=== PATIENT | male | born 1970 | race Caucasian/White ===

== ENCOUNTER 2020-10-23 15:08 | Outpatient (REF) | payer OTHER, SELFPAY ==
[2020-10-23 16:05] LABS: Alanine Aminotransferase 26 U/L (0-40); Albumin Level 4.6 g/dL (3.5-5.0); Alkaline Phosphatase 97 U/L (39-117); Anion Gap 15 (12-20); Aspartate Amino Transferase 30 U/L (5-37); Bilirubin Direct < 0.2 mg/dL (0.0-0.5); Bilirubin Total 0.3 mg/dL (0.0-1.0); Blood Urea Nitrogen 8 mg/dL (9-16); Carbon Dioxide 27 mmol/L (22-29); Chloride 102 mmol/L (96-108); Estimated Glomerular Filt Rate > 60; Glucose Random 99 mg/dL (60-115); Magnesium 1.9 mg/dL (1.6-2.6); Phosphorus 4.8 mg/dL (2.7-4.5); Potassium 4.3 mmol/L (3.3-5.1); Sodium 140 mmol/L (135-145); Total Protein 7.3 g/dL (6.5-8.0)
== END 2020-10-23 15:09 | disposition home or self-care (01) ==
LOC: HO.LAB 15:08
PROVIDERS: PCP Nurse Practitioner Family; Visit Provider Psychiatry & Neurology Neurology
DX: I95.9 Hypotension, unspecified (principal)
CPT/HCPCS: 36415; 80048; 80076; 83735; 84100

== ENCOUNTER 2022-03-30 11:18 | Outpatient (REF) | payer OTHER, SELFPAY ==
[2022-03-30 12:53] LABS: Anion Gap 17 (12-20); Blood Urea Nitrogen 7 mg/dL (9-16); Calcium 9.9 mg/dL (8.4-10.2); Carbon Dioxide 25 mmol/L (22-29); Chloride 102 mmol/L (96-108); Estimated Glomerular Filt Rate > 60; Glucose Random 85 mg/dL (60-115); Potassium 4.4 mmol/L (3.3-5.1); Sodium 140 mmol/L (135-145)
== END 2022-03-30 11:19 | disposition home or self-care (01) ==
LOC: HO.LAB 11:18
PROVIDERS: Visit Provider Psychiatry & Neurology Neurology
DX: G90.9 Disorder of the autonomic nervous system, unspecified (principal)
CPT/HCPCS: 36415; 80048

== ENCOUNTER 2023-01-15 09:31 | Outpatient (REF) | payer OTHER, SELFPAY | END 2023-01-15 09:32 | disposition home or self-care (01) | LOC: HO.LAB 09:31 | PROVIDERS: Visit Provider Psychiatry & Neurology Neurology | DX: G90.9 Disorder of the autonomic nervous system, unspecified (principal) | CPT/HCPCS: 36415; 80048 ==

== ENCOUNTER 2023-07-23 07:45 | Outpatient (REF) | payer OTHER, SELFPAY ==
--- NOTE | ~2023-07-23 | XR_ITS ---
EXAMINATION: XR HAND, RIGHT CLINICAL INFORMATION: Pain. COMPARISON: None available. TECHNIQUE: PA, lateral, and oblique views of the right hand. FINDINGS: There is bony demineralization. A mildly comminuted boxer's-type fracture is seen of the neck of the right fifth metacarpal bone. There is apex dorsal angulation. No dislocation is seen. There is mild adjacent soft tissue swelling. No soft tissue gas or foreign body is seen. XR/XR hand RT min 3V IMPRESSION: An angulated, mildly comminuted boxer's-type fracture is seen of the right fifth metacarpal neck.
== END 2023-07-23 07:46 | disposition home or self-care (01) ==
LOC: HO.XRAY 07:45
PROVIDERS: PCP Nurse Practitioner Family; Visit Provider Psychiatry & Neurology Neurology
DX: M79.641 Pain in right hand (principal)
CPT/HCPCS: 73130

== ENCOUNTER 2024-01-25 11:58 | Outpatient (REF) | payer OTHER, SELFPAY ==
[2024-01-25 13:12] LABS: Alanine Aminotransferase 40 U/L (0-40); Albumin Level 4.5 g/dL (3.5-5.0); Alkaline Phosphatase 71 U/L (39-117); Anion Gap 14 (12-20); Aspartate Amino Transferase 49 U/L (5-37); Bilirubin Direct 0.2 mg/dL (0.0-0.5); Bilirubin Total 0.6 mg/dL (0.0-1.0); Blood Urea Nitrogen 7 mg/dL (9-16); Calcium 9.3 mg/dL (8.4-10.2); Carbon Dioxide 24 mmol/L (22-29); Chloride 105 mmol/L (96-108); Estimated Glomerular Filt Rate > 60; Glucose Random 71 mg/dL (60-115); Potassium 3.9 mmol/L (3.3-5.1); Sodium 139 mmol/L (135-145); Total Protein 6.4 g/dL (6.5-8.0)
== END 2024-01-25 11:59 | disposition home or self-care (01) ==
LOC: HO.LAB 11:58
PROVIDERS: Visit Provider Psychiatry & Neurology Neurology
DX: G90.9 Disorder of the autonomic nervous system, unspecified (principal)
CPT/HCPCS: 36415; 80048; 80076

== ENCOUNTER 2024-11-24 07:22 | Outpatient (REF) | payer OTHER, SELFPAY ==
--- OUTSIDE RECORDS SUMMARY | 2024-11-24 07:25 | XMS_ITS | Clinical Summary ---
Author Organization [facility] Address [address] [place] [address] Care Team Providers Care Application Development Director Name Role Phone Marjorie Bradford PA-C Primary Care Provider [phone] Source Comments PLEASE NOTE, if this patient is a minor, it may be UNLAWFUL to discuss sensitive information that is contained in these records (such as FAMILY PLANNING, MENTAL HEALTH or SUBSTANCE ABUSE) with the minor patient's parent or other person without the patient's specific authorization.[facility] Allergies No known active allergies Medications fludrocortison e (FLORINEF) 0.1 mg tablet 07/27/19 20 Active lamoTRIgine (LAMICTAL) 200 mg tablet Take 200 mg by mouth once daily 01/04/20 21 Active blood pressure monitorIndicat ions:Dysautono sarahi ([facility]) once daily Lifetime need 1 Kit 10/14/19 22 Active compress.stock ing,knee,reg,m edIndications: Dysautonomia ([facility]) once daily Lifetime need 2 Each 10/14/19 22 Active ARIPiprazole (ABILIFY) 2 mg tablet Take 2 mg by mouth every morning 09/05/19 23 Active traZODone (DESYREL) 150 mg tablet Take 150 mg by mouth nightly at bedtime as needed 09/05/19 23 Active cyanocobalamin 1,000 mcg tabletIndicati ons:B12 deficiency Take 1 Tablet by mouth once daily 90 Tablet 1 09/27/19 23 Active MISCELLANEOUS MEDICAL SUPPLY MISCIndication s:Jackhammer esophagus,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 BMI 20.09. Please fax to [phone] 1 Each 03/26/20 24 Active midodrine (PROAMATINE) 5 mg tablet Take 5 mg by mouth once daily 07/26/19 25 Active tamsulosin (FLOMAX) 0.4 mg 24 hr capsuleIndicat ions:Difficult y urinating TAKE 1 CAPSULE BY MOUTH ONCE DAILY 30 Capsule 2 10/26/19 25 Active atorvastatin (LIPITOR) 20 mg tabletIndicati ons:Elevated LDL cholesterol level TAKE 1 TABLET BY MOUTH DAILY 30 Tablet 5 11/21/19 25 Active atorvastatin (LIPITOR) 20 mg tabletIndicati ons:Elevated LDL cholesterol level TAKE 1 TABLET BY MOUTH DAILY 30 Tablet 5 05/09/20 24 2024 Discontinued Active Problems Problem Noted Date Diagnosed Date Hematuria 08/15/2024 Difficulty urinating 08/15/2024 Tobacco use disorder 08/15/2024 Marijuana use 08/15/2024 Severe episode of recurrent major depressive disorder, without psychotic features ([facility]) 08/15/2024 Sciatic leg pain 04/23/2021 Dysautonomia ([facility]) 04/23/2021 Suicide attempt ([facility]) 03/19/2019 Overview (03/19/2019): [facility] 02/23/2019 OD on 50 tablets of Gabapentin. 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 Normal mucosa , gastritis Immunizations Immunization Administration Dates Next Due Flu, Adjuvant, 65y+ (Fluad) 03/28/2020 Flu, Preservative Free 03/28/2021,2019,04/03/2019,06/17 Hep B, Adult/Adol (ENERGIX/RECOMBIVAX) 7,07/27/2016,06/17/2016 INFLUENZA, SEASONAL, INJECTABLE 06/17/2016,06/13,09/22/2010 MENINGOCOCCAL MCV4P (MENACTRA) 06/17/2017 PNEUMOCOCCAL CONJUGATE PCV 2 0 (Prevnar) 12/09/2023 PNEUMOCOCCAL POLYSACCHARIDE PPV23 (Pneumovax 23) 06/17/2017,09/22/2010 TDAP 04/23/2021 Td (adult), 5 Lf tetanus tox oid, preservative free 12/19/2017 ZOSTER VACCINE, RECOMBINANT (SHINGRIX) 1,04/23/2021 Family History Medical History Relation Name Comments Cancer Father 68 Arthritis Mother 68 Relation Name Status Comments Father 68 Alive Mother 68 Alive Social History Tobacco Use Types Packs/Day Years Used Date Smoking Tobacco: Every Day Cigarettes 1 30 Smokeless Tobacco: Never Tobacco Cessation:Ready to Q uit: Not Asked; Counseling Given: Yes Comments:on NRT Alcohol Use Standard Drinks/Week Comments Yes 0 (1 standard drink = 0.6 oz pur e alcohol) occasionally Social Connections Answer Date Recorded Connectedness 2 08/15/2024 Financial Resource Strain Answer Date R ecorded Financial Resource Strain 1 2024 Stress Answer Date Recorded Stress 2 08/15/2024 Physical Activity Answer Date Recorded Physical Activity 0 03/01/2019 Food Insecurity Answer Date Recorded Food 1 08/15/2024 Transportation Needs Answer Date Record ed Transportation 1 08/15/2024 Housing Stability Answer Date Recorded Housing 1 08/15/2024 Safety and Environment Answer Date Jovanni rded Safety 1 12/09/2023 Utilities Answer Date Recorded Utilities 1 08/15/2024 Employment Answer Date Recorded Stress 0 12/09/2023 Sex and Gender Information Value Date Recorded Sex Assigned at Male 06/09/2017 10:30 AM PST Legal Sex Male 9:11 AM PDT Gender Identity Male 06/09/2017 10:30 AM PST Sexual Orientation Straight 06/09/2017 10 :30 AM PST Last Filed Vital Signs Vital Sign Reading Time Taken Comments Blood Pressure 116/80 08/15/2024 9:24 AM EST Pulse 75 08/15/2024 9:24 AM EST Temperature 36.9 ??C (98.5 ??F) 08/15/2024 9:24 AM ES T Respiratory Rate 16 08/15/2024 9:24 AM EST Oxygen Saturation 97% 08/15/2024 9:24 AM EST Inhaled Oxygen Concentration - - Weight 62.1 kg (137 lb) 08/15/2024 9:24 AM EST Height 177.8 cm (5' 10 ) 08/15/2024 9:24 AM EST Body Mass Index 19.66 08/15/2024 9:24 AM EST Plan of Treatment Upcoming Encounters Date Type Department Care Team (Late st Contact Info) Description 12/21/2024 9:00 AM EDT Office Visit [facility] [address] [place] [phone] Aleah Romo [address] [place] [address] Health Maintenance Due Date Last Done Comments Anxiety Screening 1970 Dental FMX/Pano [address] CT Colonography 12/18/2015 Fecal DNA 12/18/2015 Flexible Sigmoidoscopy 12/18/2015 Dental Perio Charting 07/20/2024 07/18/2023 , 01/13/2023, 12/28/2021 Depression Monitoring 11/12/2024 08/15/2024 , 12/09/2023, 07/15/2021, Additional history exists Lung Cancer Screening 11/24/2024 11/25/2023 , 11/25/2023, 11/25/2023, Additional history exists Medicare Annual Wellness Visit 12/08/2024 0 12/09/2023, 09/24/2022, 04/23/2021, Additional history exists Lipid Screening 12/16/2024 2023, 09/08, 07/15/2021, Additional history exists Dental Examination 04/15/2025 04/13/2024, 0 07/18/2023, 01/13/2023, Additional history exists Dental Prophy 04/15/2025 04/13/2024, 02/2024, 01/13/2023, Additional history exists Diabetes Screening 08/11/2025 08/11/2024, 0 2023, 2023, Additional history exists Hypertension Screening (#1) 08/15/2025 Tobacco Cessation Counseling (#1) 08/15/2025 09/24/2022, 04/23/2021, 06/09/2017, Additional history exists Colorectal Cancer Screening 08/15/2026 FIT/gFOBT 08/15/2026 06/28/2021 Imm-DTaP/Tdap/Td (2 - Td or Tdap) 04/23/2031 021, 12/19/2017 Colonoscopy 08/15/2033 08/15/2023 Imm-Hepatitis B Completed 04/12/2017, 07/11, 06/17/2016 HIV Screening Completed 04/23/2021, 11/09/2017 Hepatitis C Screening Completed 04/23/2021, 015 Imm-Zoster, Recombinant Completed 06/29/2021, 04/23 Imm-Pneumococcal Completed 12/09/2023, 02/2017, 09/22/2010 [id number] Completed 04/14/2024, 05/11, 04/25/2022, Additional history exists Imm-Influenza Completed 04/14/2024, 05/11, 04/25/2022, Additional history exists Alcohol and Drug Screen Completed 08/15/19, 12/09/2023, 09/24/2022, Additional history exists Procedures Procedure Name Priority Date/Time Associated Diagnosis Comments IMAGING SCANNED DOCUMENT 10/23/2024 3:00 AM EDT REFERRAL TO UROLOGY Routine 10/11/2024 3 :00 AM EDT Hematuria, unspecified type Difficulty urinating OTHER ORDERS SCANNED DOCUMENT 09/14/2024 3:00 AM EST REFERRAL SCANNED DOCUMENT 09/12/2024 3:00 AM EST COMPREHENSIVE METABOLIC PANEL Routine 08/11/2024 9:10 AM EST Difficulty urinating PROPHYLAXIS - ADULT Routine 04/13/2024 1 :40 PM EDT Chronic gingivitis, plaque induced Encounter for dental examination and cleaning without abnormal findings PERIODIC ORAL EVALUATION ESTABLISHED PATIENT Routine 04/13/2024 1:40 PM EDT Chronic gingivitis, plaque induced Encounter for dental examination and cleaning without abnormal findings LIPIDS W RFLX TO DIRECT LDL Routine 2023 10:18 AM EDT Annual physical exam LUNG CANCER SCREENING (LOW DOSE CT OF CHEST) SCANNED DOCUMENT 11/25/2023 3:00 AM EDT COLONOSCOPY PATHOLOGY SCANNED DOCUMENT 08/15/2023 3:00 AM EST COMP PERIODONTAL EVALUATION - NEW/EST PATIENT Routine 07/18/2023 1:40 PM EST Encounter for dental examination FECAL GLOBIN BY IMMUNOCHEMISTRY (FIT) Routine 06/28/2021 7:00 PM EST Colon cancer screening HIV 1/2 AG & AB W/RFLX (4TH GEN) Routine 04/23/2021 9:18 AM EDT Screening for viral disease HEPATITIS C AB W/RFLX HCV RNA, QT, RT PCR Routine 04/23/2021 9:18 AM EDT Screening for viral disease from Last 3 Months or Most Recently Relevant to Health Maintenance Results * IMAGING SCANNED DOCUMENT (10/23/2024 3:00 AM EDT) 10/23/2024 3:00 AM EDT Nimo PEREZP-C SCAN IMAGING Final Re sult * REFERRAL TO UROLOGY (10/11/2024 3:00 AM EDT) 10/11/2024 3:00 AM EDT Marjorie Bradford PA-C REFERRAL Final Result * OTHER ORDERS SCANNED DOCUMENT (09/14/2024 3:00 AM EST) 09/14/2024 3:00 AM EST Marjorie VILLALTA-C SCAN OTHER ORDERS Final Resu lt * REFERRAL SCANNED DOCUMENT (09/12/2024 3:00 AM EST) 09/12/2024 3:00 AM EST Marjorie Bradford PA-C SCAN REFERRAL Final Result * (ABNORMAL) COMPREHENSIVE METABOLIC PANEL (08/11/2024 9:10 AM EST) GLUCOSE 85 65 - 99 mg/dL [facility] Comment: ?Fasting reference interval UREA NITROGEN (BUN) 9 7 - 25 mg/dL [facility] CREATININE (blood) 0.86 0.70 - 1.30 mg/dL [facility] EGFR 104 > OR = 60 mL/min/1. 73m2 [facility] BUN/CREATININE RATIO SEE NOTE: [facility] Comment: ?? Not Reported: BUN and Creatinine are within ?? reference range. ? SODIUM 138 135 - 146 mmol/L [facility] POTASSIUM 4.4 3.5 - 5.3 mmol/L [facility] CHLORIDE 105 98 - 110 mmol/L [facility] CARBON DIOXIDE 26 20 - 32 mmol/L [facility] CALCIUM 9.0 8.6 - 10.3 mg/dL [facility] PROTEIN, TOTAL 6.0(L) 6.1 - 8.1 g/dL [facility] ALBUMIN 4.5 3.6 - 5.1 g/dL [facility] GLOBULIN 1.5(L) 1.9 - 3.7 g/dL (calc) [facility] ALBUMIN/GLOBULI N RATIO 3.0(H) 1.0 - 2.5 (calc) [facility] BILIRUBIN, TOTAL 0.6 0.2 - 1.2 mg/dL [facility] ALKALINE PHOSPHATASE 59 35 - 144 U/L [facility] AST 40(H) 10 - 35 U/L [facility] ALT 38 9 - 46 U/L [facility] Blood Blood / Unknown 08/11/2024 9 :10 AM EST 08/11/2024 9:11 AM EST Narrative [facility] - 08/13/2024 5:48 PM EST FASTING:YES Forrest Pitts PA-C LAB - BLOOD DRAW Edited Resul t - Final [facility] [address] [address], [facility] [address] [address] * LIPIDS W RFLX TO DIRECT LDL (2023 10:18 AM EDT) CHOLESTEROL, TOTAL 154 <200 mg/dL [facility] HDL CHOLESTEROL 58 > OR = 40 mg/dL [facility] TRIGLYCERIDES 52 <150 mg/dL [facility] LDL-CHOLESTEROL 83 99 mg/dL (calc) [facility] Comment: Reference range: <100 Desirable range <100 mg/dL for primary prevention; ?? <70 mg/dL for patients with CHD or diabetic patients with > or = 2 CHD risk factors. LDL-C is now calculated using the James calculation, which is a validated novel method providing better accuracy than the Friedewald equation in the estimation of LDL-C. Miguelangel CHA et al. EMMA. 2013;310(19): 6826-8134 (http://education.[employer]/faq/WRK550) CHOL/HDLC RATIO 2.7 <5.0 (calc) [facility] NON-HDL CHOLESTEROL 96 <130 mg/dL (calc) [facility] Comment: For patients with diabetes plus 1 major ASCVD risk factor, treating to a non-HDL-C goal of <100 mg/dL (LDL-C of <70 mg/dL) is considered a therapeutic option. Blood Blood / Unknown 2023 1 0:18 AM EDT 2023 10:19 AM EDT Narrative [facility] - 12/18/2023 11:17 AM EDT FASTING:YES us Marjorie Bradford PA-C LAB - BLOOD DRAW Final Resul t [facility] [address] [address], [facility] [address] [address] * LUNG CANCER SCREENING (LOW DOSE CT OF CHEST) SCANNED DOCUMENT (11/25/2023 3:00 AM EDT) 11/25/2023 3:00 AM EDT Kerry Dodsonadia STEEL [employer]ER-C SCAN IMAGING Edited Resul t - Final * COLONOSCOPY PATHOLOGY SCANNED DOCUMENT (08/15/2023 3:00 AM EST) 08/15/2023 3:00 AM EST Marjorie Bradford PA-C SCAN LAB Final Result * FECAL GLOBIN BY IMMUNOCHEMISTRY (FIT) (06/28/2021 7:00 PM EST) FECAL GLOBIN BY IMMUNOCHEMISTRY See Note [facility] Comment: ??FECAL GLOBIN BY IMMUNOCHEMISTRY ?Micro Number: ?[id number] ??Test Status: ? Final ??Specimen Source: ?? Insure (tm) fobt test card ??Specimen Quality: ??Adequate ??Fecal Globin: ?Not Detected Stool Stool specimen / Unknown 06/28/2021 7:00 PM EST 06/30/2021 1:59 PM EST Kerry Wilkins [facility] LAB - NO BLOOD DRAW Final Re sult [facility] [address] [place] [address], [facility] [address] [place] [address],[place] [address] * HEPATITIS C AB W/RFLX HCV RNA, QT, RT PCR (04/23/2021 9:18 AM EDT) HEPATITIS C ANTIBODY NON-REACT BETTIE NON-REACT BETTIE [facility] SIGNAL TO CUT-OFF 0.01 <1.00 [facility] Comment: HCV antibody was non-reactive. There is no laboratory evidence of HCV infection. In most cases, no further action is required. However, if recent HCV exposure is suspected, a test for HCV RNA (test code 72428) is suggested. For additional information please refer to http://education.[employer]/faq/LLI79q5 (This link is being provided for informational/ educational purposes only.) Blood Blood / Unknown 04/23/2021 9 :18 AM EDT 04/23/2021 9:19 AM EDT Narrative [facility] - 04/24/2021 2:35 PM EDT FASTING:NO Kerry Wilkins [employer]-C LAB - BLOOD DRAW Edited Resu lt - Final [facility] [address] [address], [facility] [address] [address] * HIV 1/2 AG & AB W/RFLX (4TH GEN) (04/23/2021 9:18 AM EDT) HIV AG/AB, 4TH GEN NON-REAC TIVE NON-REAC TIVE [facility] Comment: HIV-1 antigen and HIV-1/HIV-2 antibodies were not detected. There is no laboratory evidence of HIV infection. PLEASE NOTE: This information has been disclosed to you from records whose confidentiality may be protected by state law. ??If your state requires such protection, then the state law prohibits you from making any further disclosure of the information without the specific written consent of the person to whom it pertains, or as otherwise permitted by law. A general authorization for the release of medical or other information is NOT sufficient for this purpose. ?? For additional information please refer to http://[employer].Film[employer]ob/faq/XWT997 (This link is being provided for informational/ educational purposes only.) The performance of this assay has not been clinically validated in patients less than 2 years old. Blood Blood / Unknown 04/23/2021 9 :18 AM EDT 04/23/2021 9:19 AM EDT Narrative [email or web address] - 04/24/2021 2:35 PM EDT FASTING:NO Kerry Wilkins [employer]-C LAB - BLOOD DRAW Final Resul t [facility] [address] [facility] [address] [place] [address], [facility] [address] [address] from Last 3 Months or Most Recently Relevant to Health Maintenance Insurance [place] MEDICAID [facility] Member Subscriber Plan / Payer (Ef fective 2017-Present) Name:Victorino Morillo Relation to Subscriber:Self Name:Victorino Morillo Payer ID:[id number] Group ID:Not on file Type:Indemnity Address: [address] [place] [address] Care Teams Application Development Director Relationship Specialty Start Date End Date Marjorie Bradford PA-C [address] [place] [address] PCP - General Internal Medicine 07/18/23
--- OUTSIDE RECORDS SUMMARY | 2024-11-24 07:25 | XMS_ITS | Encounter Summary ---
Author Organization [email or web address] Address [address] [place] [address] Care Team Providers Care Molding Supervisor Name Role Phone Physician, Pcp Unknown Primary Care Provider Tiffani vailable Encounter Details Date Type Department Care Team (Late Contact Info) Description 10/18/2024 Lab Requisition [facility] - Main Lab [address] [facility] [place] [address] Esequiel Saenz MD [address] [facility] [address] [place] [phone] Benign essential microscopic hematuria Social History Tobacco Use Types Packs/Day Years Used Date Smoking Tobacco: Every Day Sex and Gender Information Value Date Recorded Sex Assigned at Not on file Legal Sex Male 4:25 AM EST Gender Identity Not on file Sexual Orientation Not on file documented as of this encounter Plan of Treatment Upcoming Encounters Date Type Department Care Team (Late Contact Info) Description 11/28/2024 8:[address] [facility] CT Scan [address] [place] [phone] documented as of this encounter Procedures Procedure Name Priority Date/Time Associated Diagnosis Comments AP OUTSIDE CONSULT Routine 10/11/2024 12 :00 AM EDT Benign essential microscopic hematuria documented in this encounter Results * Anatomic pathology outside consult (10/11/2024 12:00 AM EDT) Final Diagnosis A. Urine, Voided, ([id number]): Negative for high grade urothelial carcinoma. Results of [facility] fluorescence in situ hybridization (FISH) testing: CEP3: Normal CEP7: Normal CEP17: Normal LSI 9p21: Normal Interpretation: Normal profile Controls stained appropriately. Note: The results are intended as a screening device and should be interpreted in association with other clinical and pathological findings. 10/19/2024 5:07 PM EDT [facility] Clinical Information Benign essential microscopic hematuria R31.1 Urine Cytology/FISH (now) 10/19/2024 5:07 PM EDT [facility] Gross Description A. Urine, Voided, ([id number]): Received one ThinPrep slide for cytology and one ThinPrep slide for [facility] FISH 10/19/2024 5:07 PM EDT [facility] Disclaimer Unless otherwise specified, all tissue is 10% NB formalin fixed and paraffin embedded. Technical pathology services provided by [facility] at [address] [place] [address] [address] [address] (CLIA #[id number]/Martha Sweet MD, Supplies Packer) 10/19/2024 5:07 PM EDT [facility] Tissue Urine specimen from urethra / Unknown 10/11/2024 10/18/2024 11:26 AM EDT us Esequiel Saenz MD LAB PATHOLOGY ORDERABLES Fin al Result [facility] [address] [place] [address], documented in this encounter Visit Diagnoses Diagnosis Benign essential microscopic hematuria documented in this encounter Care Teams Molding Supervisor Relationship Specialty Start Date End Date Physician, Pcp Unknown PCP - General 10/18/24 documented as of this encounter
--- OUTSIDE RECORDS SUMMARY | 2024-11-24 07:25 | XMS_ITS | Clinical Summary ---
Author Organization [address] [facility] Address [address] [place] [address] Phone Care Team Providers Care Packaging Mechanic Name Role Phone Physician, Pcp Unknown Primary Care Provider Tiffani vailable Encounters Date Type Department Care Team Description 11/14/2024 Telephone Lung Screening Program - [place] [address] [facility] [address] [place] [address] Loan Britt [place] Appointment (1st Notification) 10/18/2024 Lab Requisition [facility] - Main Lab [address] [facility] [place] [address] Esequiel Saenz MD Benign essential microscopic hematuria from Last 3 Months Medical History Medical History Date Comments Tobacco abuse DX:Tobacco abuse Dysautonomia (CMS/HCC V24, CMS/HCC V28) DX:Dysautonomia (HCC) Suicide attempt (CMS/HCC V24, [facility] V28) DX:Suicide attempt (HCC) Sciatic leg pain DX:Sciatic leg pain Jackhammer esophagus DX:Jackhamm er esophagus Alcohol abuse DX:Alcohol abuse Family History Medical History Relation Name Comments Lung cancer Paternal Grandfather Relation Name Status Comments Paternal Grandfather Social History Tobacco Use Types Packs/Day Years Used Date Smoking Tobacco: Every Day Sex and Gender Information Value Date Recorded Sex Assigned at Not on file Legal Sex Male 4:25 AM EST Gender Identity Not on file Sexual Orientation Not on file Obstetrics History Plan of Treatment Upcoming Encounters Date Type Department Care Team (Late st Contact Info) Description 11/28/2024 8:00 AM EDT Appointment [facility] CT Scan [address] [place] [address] Health Maintenance Due Date Last Done Comments DTaP,Tdap,and Td Vaccines (1 - Tdap) 1989 Hepatitis B Vaccines (1 of 3 - 19+ 3-dose series) 1989 Pneumococcal Vaccine: 50+ Ye ars (1 of 2 - PCV) 1989 Pneumococcal Vaccine: Pediat rics (0 to 5 Years) and At-Risk Patients (6 to 64 Years) (1 of 2 - PCV) 1989 Zoster Vaccines (1 of 2) 2020 Cholesterol Screening (Lipid Panel) 06/13/2022 Colorectal Cancer Screening: Colonoscopy 06/13/2022 Depression Screening 06/13/2022 HIV Screening 06/13/2022 Hepatitis C Screening 06/13/2022 Social Influencers of Health Screening 06/13/2022 COVID-19 Vaccine ( - 2023-2 5 season) 2024 Influenza Vaccine (Season Ended) 2025 HIB Vaccines Aged Out No longer eligi ble based on patient's age to complete this topic HPV Vaccines Aged Out No longer eligi ble based on patient's age to complete this topic Hepatitis A Vaccines Aged Out No long er eligible based on patient's age to complete this topic IPV Vaccines Aged Out No longer eligi ble based on patient's age to complete this topic MMR Vaccines Aged Out No longer eligi ble based on patient's age to complete this topic Meningococcal ACWY Vaccine Aged Out N o longer eligible based on patient's age to complete this topic Meningococcal B Vaccine Aged Out No l onger eligible based on patient's age to complete this topic RSV Immunization Patients Un raul 20 months Aged Out No longer eligible b ased on patient's age to complete this topic Varicella Vaccines Aged Out No longer eligible based on patient's age to complete this topic Procedures Procedure Name Priority Date/Time Associated Diagnosis Comments AP OUTSIDE CONSULT Routine 10/11/2024 12 :00 AM EDT Benign essential microscopic hematuria from Last 3 Months Results * Anatomic pathology outside consult (10/11/2024 12:00 AM EDT) Final Diagnosis A. Urine, Voided, ([id number]): Negative for high grade urothelial carcinoma. Results of [facility] fluorescence in situ hybridization (FISH) testing: CEP3: Normal CEP7: Normal CEP17: Normal LSI 9p21: Normal Interpretation: Normal profile Controls stained appropriately. Note: The results are intended as a screening device and should be interpreted in association with other clinical and pathological findings. 10/19/2024 5:07 PM EDT [facility] Clinical Information Benign essential microscopic hematuria R31.1 Urine Cytology/FISH (now) 10/19/2024 5:07 PM EDT [facility] Gross Description A. Urine, Voided, ([id number]): Received one ThinPrep slide for cytology and one ThinPrep slide for [facility] FISH 10/19/2024 5:07 PM EDT [facility] Disclaimer Unless otherwise specified, all tissue is 10% NB formalin fixed and paraffin embedded. Technical pathology services provided by [facility] at [address], [place] [address] (CLIA #[id number]/Martha Sweet MD, Tag And Label Cutter) 10/19/2024 5:07 PM EDT [facility] Tissue Urine specimen from urethra / Unknown 10/11/2024 10/18/2024 11:26 AM EDT us Esequiel Saenz MD LAB PATHOLOGY ORDERABLES Fin al Result [facility] [address] [place] [address], from Last 3 Months Insurance [facility] Member Subscriber Plan / Payer (Ef fective 2024-Present) Name:Victorino Morillo Relation to Subscriber:Self Name:Victorino Morillo Payer ID:[id number] Group ID:Not on file Type:Not on file Address: [place] [address] [address] MEDICAID - [place] Care Teams Packaging Mechanic Relationship Specialty Start Date End Date Physician, Pcp Unknown PCP - General 10/18/24
[2024-11-24 08:49] LABS: Alanine Aminotransferase 52 U/L (0-40); Albumin Level 4.2 g/dL (3.5-5.0); Alkaline Phosphatase 73 U/L (39-117); Anion Gap 11 (12-20); Aspartate Amino Transferase 48 U/L (5-37); Bilirubin Direct 0.2 mg/dL (0.0-0.5); Bilirubin Total 0.5 mg/dL (0.0-1.0); Blood Urea Nitrogen 9 mg/dL (9-16); Calcium 8.9 mg/dL (8.4-10.2); Carbon Dioxide 26 mmol/L (22-29); Chloride 108 mmol/L (96-108); Estimated Glomerular Filt Rate > 60; Glucose Fasting 107 mg/dL (60-99); Potassium 4.1 mmol/L (3.3-5.1); Sodium 141 mmol/L (135-145); Total Protein 6.2 g/dL (6.5-8.0)
== END 2024-11-24 07:23 | disposition home or self-care (01) ==
LOC: HO.LAB 07:22
PROVIDERS: PCP Physician Assistant; Visit Provider Psychiatry & Neurology Neurology
DX: G90.9 Disorder of the autonomic nervous system, unspecified (principal)
CPT/HCPCS: 36415; 80048; 80076

== ENCOUNTER 2025-03-12 08:46 | Outpatient (REF) | payer OTHER, SELFPAY ==
--- OUTSIDE RECORDS SUMMARY | 2025-03-12 09:32 | XMS_ITS | Clinical Summary ---
Author Organization [facility] Address [address] [place] [address] Care Team Providers Care [employer] Agriculture Teacher Name Role Phone Marjorie Bradford PA-C Primary Care Provider [phone] Source Comments PLEASE NOTE, if this patient is a minor, it may be UNLAWFUL to discuss sensitive information that is contained in these records (such as FAMILY PLANNING, MENTAL HEALTH or SUBSTANCE ABUSE) with the minor patient's parent or other person without the patient's specific authorization.[facility] Allergies No known active allergies Medications fludrocortison e (FLORINEF) 0.1 mg tablet 020 Active lamoTRIgine (LAMICTAL) 200 mg tablet Take 200 mg by mouth once daily 021 Active blood pressure monitorIndicat ions:Dysautono sarahi ([facility]) once daily Lifetime need 1 Kit 022 Active compress.stock ing,knee,reg,m edIndications: Dysautonomia ([facility]) once daily Lifetime need 2 Each 022 Active ARIPiprazole (ABILIFY) 2 mg tablet Take 2 mg by mouth every morning 023 Active traZODone (DESYREL) 150 mg tablet Take 150 mg by mouth nightly at bedtime as needed 023 Active cyanocobalamin 1,000 mcg tabletIndicati ons:B12 deficiency Take 1 Tablet by mouth once daily 90 Tablet 1 023 Active midodrine (PROAMATINE) 5 mg tablet Take 5 mg by mouth once daily 025 Active atorvastatin (LIPITOR) 20 mg tabletIndicati ons:Elevated LDL cholesterol level TAKE 1 TABLET BY MOUTH DAILY 30 Tablet 5 025 Active MISCELLANEOUS MEDICAL SUPPLY MISCIndication s:Jackhammer esophagus,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 BMI 20.09. Please fax to [phone] miscellaneous route 2 (two) times daily Boost Nutritional supplement to take twice a day. BMI 20.09. Please fax to [phone]. 100 Each 2 025 Active tamsulosin (FLOMAX) 0.4 mg 24 hr capsuleIndicat ions:Difficult y urinating TAKE 1 CAPSULE BY MOUTH DAILY 30 Capsule 2 025 Active MISCELLANEOUS MEDICAL SUPPLY MISCIndication s:Jackhammer esophagus,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 BMI 20.09. Please fax to [phone] 1 Each 024 2024 Discontinued(R eodalier (E-Cancel Not Sent)) tamsulosin (FLOMAX) 0.4 mg 24 hr capsuleIndicat ions:Difficult y urinating TAKE 1 CAPSULE BY MOUTH ONCE DAILY 30 Capsule 2 025 2024 Discontinued Active Problems Problem Noted Date Diagnosed Date Hematuria 08/15/2024 Difficulty urinating 08/15/2024 Tobacco use disorder 08/15/2024 Marijuana use 08/15/2024 Severe episode of recurrent major depressive disorder, without psychotic features ([facility]) 08/15/2024 Sciatic leg pain 04/23/2021 Dysautonomia ([facility]) 04/23/2021 Suicide attempt ([facility]) 03/19/2019 Overview (03/19/2019): [facility] 02/23/2019 OD on 50 tablets of Gabapentin. 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 Normal mucosa , gastritis Encounters Date Type Department Care Team Description 01/23/2025 9:00 AM EDT Office Visit [address] [address] Marjorie Bradford PA-C 12/21/2024 9:00 AM EDT Office Visit [address] [address] Aleah Romo from Last 3 Months Immunizations Immunization Administration Dates Next Due Flu, Adjuvant, 65y+ (Fluad) 03/28/2020 Flu, Preservative Free 03/28/2021,2019,04/03/2019,06/17 Hep B, Adult/Adol (FAMMBGP-M-BFRWL/RECOMBIVAX-ADULT) 04/12/2017,07/27/2016,06/17/2016 INFLUENZA, SEASONAL, INJECTABLE 06/17/2016,06/13,09/22/2010 MENINGOCOCCAL MCV4P (MENACTRA) 06/17/2017 PNEUMOCOCCAL CONJUGATE PCV 2 0 (Prevnar 20) 12/09/2023 PNEUMOCOCCAL POLYSACCHARIDE PPV23 (Pneumovax 23) 06/17/2017,09/22/2010 TDAP 04/23/2021 Td (adult), 5 Lf tetanus tox oid (Tenivac), preservative free 12/19/2017 ZOSTER VACCINE, RECOMBINANT (SHINGRIX) [...] alcohol) occasionally Social Connections Answer Date Recorded How often do you feel lonely or isolated from th ose around you? 2 08/15/2024 Financial Resource Strain Answer Date R ecorded Hard to pay for: Food 1 08/15/2024 Stress Answer Date Recorded Do you feel these kinds of stress these days? 2 08/15/2024 Physical Activity Answer Date Recorded Physical Activity 0 03/01/2019 Food Insecurity Answer Date Recorded Hard to pay for: Food 1 08/15/2024 Transportation Needs Answer Date Record ed Hard to pay for: Transportation 1 08/15/2024 Housing Stability Answer Date Recorded Hard to pay for: Rent/Mortgage payment 1 08/15/2024 Safety and Environment Answer Date Jovanni rded Safety 1 12/09/2023 Utilities Answer Date Recorded Hard to pay for: Utilities 1 08/15 Employment Answer Date Recorded Stress 0 12/09/2023 Sex and Gender Information Value Date Recorded Sex Assigned at Male 06/09/2017 10:30 AM PST Legal Sex Male 9:11 AM PDT Gender Identity Male 06/09/2017 10:30 AM PST Sexual Orientation Straight 06/09/2017 10 :30 AM PST Last Filed Vital Signs Vital Sign Reading Time Taken Comments Blood Pressure 114/80 01/23/2025 8:49 AM EDT Pulse 78 01/23/2025 8:49 AM EDT Temperature 36.7 C (98 F) 01/23/2025 8:49 AM EDT Respiratory Rate 16 01/23/2025 8:49 AM EDT Oxygen Saturation 96% 01/23/2025 8:49 AM EDT Inhaled Oxygen Concentration - - Weight 59.5 kg (131 lb 3.2 oz) 01/23/2025 8:49 A M EDT Height 177.8 cm (5' 10 ) 01/23/2025 8:49 AM EDT Body Mass Index 18.83 01/23/2025 8:49 AM EDT Plan of Treatment Upcoming Encounters Date Type Department Care Team (Late st Contact Info) Description 05/03/2025 8:40 AM EDT Office Visit [facility] [address] [place] [address] Marjorie Bradford PA-C [address] [place] [address] 06/24/2025 9:00 AM EST Office Visit [facility] [address] [place] [address] Aleah Romo [address] [place] [address] Health Maintenance Due Date Last Done Comments Anxiety Screening 1970 Dental FMX/Pano 1970 Medicare Annual Wellness Visit 1988 CT Colonography 12/18/2015 Fecal DNA 12/18/2015 Flexible Sigmoidoscopy 12/18/2015 Lipid Screening 12/16/2024 2023, 09/08, 07/15/2021, Additional history exists Imm-Influenza (#1) 2025 04/14/2024, 1 07/28/2022, 04/25/2022, Additional history exists Depression Monitoring 04/25/2025 01/23/2025 , 08/15/2024, 12/09/2023, Additional history exists Diabetes Screening 08/11/2025 08/11/2024, 0 2023, 2023, Additional history exists Lung Cancer Screening 11/28/2025 11/28/2024 , 11/28/2024, 11/25/2023, Additional history exists Dental Examination 12/23/2025 12/21/2024, 1 , 07/18/2023, Additional history exists Dental Perio Charting 12/23/2025 12/21/2024 , 07/18/2023, 01/13/2023, Additional history exists Dental Prophy 12/23/2025 12/21/2024, 10/2023, 07/18/2023, Additional history exists Hypertension Screening (#1) 01/23/2026 Tobacco Cessation Counseling (#1) 01/23/2026 09/24/2022, 04/23/2021, 06/09/2017, Additional history exists Colorectal Cancer Screening 08/15/2026 FIT/gFOBT 08/15/2026 06/28/2021 Imm-DTaP/Tdap/Td (2 - Td or Tdap) 04/23/2031 021, 12/19/2017 Colonoscopy 08/15/2033 08/15/2023 Imm-Hepatitis B Completed 04/12/2017, 07/11, 06/17/2016 HIV Screening Completed 04/23/2021, 11/09/2017 Hepatitis C Screening Completed 04/23/2021, 015 Imm-Zoster, Recombinant Completed 06/29/2021, 04/23 Imm-Pneumococcal 50+ Completed 12/09/2023, 06/17/2017, 09/22/2010 [id number] Completed 04/14/2024, 05/11, 04/25/2022, Additional history exists Alcohol and Drug Screen Completed 08/15/19, 12/09/2023, 09/24/2022, Additional history exists Procedures Procedure Name Priority Date/Time Associated Diagnosis Comments REFERRAL SCANNED DOCUMENT 01/28/2025 3:00 AM EDT INTRAORAL - PERIAPICAL EACH ADD RADIOGRAPH IMAGE Routine 12/21/2024 9:00 AM EDT Encounter for dental examination INTRAORAL - PERIAPICAL FIRST RADIOGRAPHIC IMAGE Routine 12/21/2024 9:00 AM EDT Encounter for dental examination PERIODIC ORAL EVALUATION ESTABLISHED PATIENT Routine 12/21/2024 9:00 AM EDT Encounter for dental examination DENTAL CASE MANAGEMENT - MOTIVATIONAL INTV Routine 12/21/2024 9:00 AM EDT Encounter for dental examination PROPHYLAXIS - ADULT Routine 12/21/2024 9 :00 AM EDT Encounter for dental examination COMP PERIODONTAL EVALUATION - NEW/EST PATIENT Routine 12/21/2024 9:00 AM EDT Encounter for dental examination CARIES RISK ASSESSMENT & DOC FINDING HIGH RISK Routine 12/21/2024 9:00 AM EDT Encounter for dental examination NUTRITIONAL COUNSELING CONTROL OF DENTAL DISEASE Routine 12/21/2024 9:00 AM EDT Encounter for dental examination ORAL HYGIENE INSTRUCTIONS Routine 12/21/2024 9:00 AM EDT Encounter for dental examination ORAL CANCER SCREENING Routine 12/21/2024 9:00 AM EDT Encounter for dental examination CASE PRESENTATION SUBS DTL & EXTENSIVE TX PLN Routine 12/21/2024 9:00 AM EDT Encounter for dental examination LUNG CANCER SCREENING (LOW DOSE CT OF CHEST) SCANNED DOCUMENT 11/28/2024 3:00 AM EDT COMPREHENSIVE METABOLIC PANEL Routine 08/11/2024 9:10 AM EST Difficulty urinating LIPIDS W RFLX TO DIRECT LDL Routine 2023 10:18 AM EDT Annual physical exam COLONOSCOPY PATHOLOGY SCANNED DOCUMENT 08/15/2023 3:00 AM EST FECAL GLOBIN BY IMMUNOCHEMISTRY (FIT) Routine 06/28/2021 7:00 PM EST Colon cancer screening HIV 1/2 AG & AB W/RFLX (4TH GEN) Routine 04/23/2021 9:18 AM EDT Screening for viral disease HEPATITIS C AB W/RFLX HCV RNA, QT, RT PCR Routine 04/23/2021 9:18 AM EDT Screening for viral disease from Last 3 Months or Most Recently Relevant to Health Maintenance Results * REFERRAL SCANNED DOCUMENT (01/28/2025 3:00 AM EDT) 01/28/2025 3:00 AM EDT [facility] Provider Default SCAN REFERRAL Final Resu lt * LUNG CANCER SCREENING (LOW DOSE CT OF CHEST) SCANNED DOCUMENT (11/28/2024 3:00 AM EDT) 11/28/2024 3:00 AM EDT Marjorie Bradford PA-C SCAN IMAGING Final Result * (ABNORMAL) COMPREHENSIVE METABOLIC PANEL (08/11/2024 9:10 AM EST) GLUCOSE 85 65 - 99 mg/dL [facility] Comment: Fasting reference interval UREA NITROGEN (BUN) 9 7 - 25 mg/dL [facility] CREATININE (blood) 0.86 0.70 - 1.30 mg/dL [facility] EGFR 104 > OR = 60 mL/min/1. 73m2 [facility] BUN/CREATININE RATIO SEE NOTE: [facility] [employer] [facility] Comment: Not Reported: BUN and Creatinine are within reference range. SODIUM 138 135 - 146 mmol/L [facility] POTASSIUM 4.4 3.5 - 5.3 mmol/L [facility] CHLORIDE 105 98 - 110 mmol/L [facility] CARBON DIOXIDE 26 20 - 32 mmol/L [facility] CALCIUM 9.0 8.6 - 10.3 mg/dL [facility] PROTEIN, TOTAL 6.0(L) 6.1 - 8.1 g/dL [facility] ALBUMIN 4.5 3.6 - 5.1 g/dL [facility] GLOBULIN 1.5(L) 1.9 - 3.7 g/dL (calc) [facility] ALBUMIN/GLOBULI N RATIO 3.0(H) 1.0 - 2.5 (calc) [facility] BILIRUBIN, TOTAL 0.6 0.2 - 1.2 mg/dL [facility] ALKALINE PHOSPHATASE 59 35 - 144 U/L [facility] AST 40(H) 10 - 35 U/L [facility] ALT 38 9 - 46 U/L [facility] Blood Blood / Unknown 08/11/2024 9 :10 AM EST 08/11/2024 9:11 AM EST Narrative [facility] - 08/13/2024 5:48 PM EST FASTING:YES us Forrest Pitts PA-C LAB - BLOOD DRAW Edited Resul t - Final [facility] [address] [address], [facility] [address] [address] * LIPIDS W RFLX TO DIRECT LDL (2023 10:18 AM EDT) CHOLESTEROL, TOTAL 154 <200 mg/dL [facility] HDL CHOLESTEROL 58 > OR = 40 mg/dL [facility] TRIGLYCERIDES 52 <150 mg/dL [facility] LDL-CHOLESTEROL 83 99 mg/dL (calc) [facility] Comment: Reference range: <100 Desirable range <100 mg/dL for primary prevention; <70 mg/dL for patients with CHD or diabetic patients with > or = 2 CHD risk factors. LDL-C is now calculated using the Miguelangel-Sánchez calculation, which is a validated novel method providing better accuracy than the Friedewald equation in the estimation of LDL-C. Miguelangel SS et al. EMMA. 2013;310(19): 2836-1262 (http://education.[employer]/faq/WVZ212) CHOL/HDLC RATIO 2.7 <5.0 (calc) [facility] NON-HDL CHOLESTEROL 96 <130 mg/dL (calc) [facility] Comment: For patients with diabetes plus 1 major ASCVD risk factor, treating to a non-HDL-C goal of <100 mg/dL (LDL-C of <70 mg/dL) is considered a therapeutic option. Blood Blood / Unknown 2023 1 0:18 AM EDT 2023 10:19 AM EDT Narrative [employer] [facility] - 12/18/2023 11:17 AM EDT FASTING:YES Marjorie VILLALTA-Nolberto LAB - BLOOD DRAW Final Resul t [employer] [facility] [address] [place] [address], [facility] [address] [address] * COLONOSCOPY PATHOLOGY SCANNED DOCUMENT (08/15/2023 3:00 AM EST) 08/15/2023 3:00 AM EST Marjorie VILLALTA-Nolberto SCAN LAB Final Result * FIT DIAGNOSITC ONLY (06/28/2021 7:00 PM EST) FECAL GLOBIN BY IMMUNOCHEMISTRY See Note [facility] Comment: FECAL GLOBIN BY IMMUNOCHEMISTRY Micro Number: [id number] Test Status: Final Specimen Source: Insure (tm) fobt test card Specimen Quality: Adequate Fecal Globin: Not Detected Stool Stool specimen / Unknown 06/28/2021 7:00 PM EST 06/30/2021 1:59 PM EST Kerry Wilkins SISAL OPERATOR-C LAB BODY FLUIDS AND STOOLS A MBULATORY Final Result Performing Organization Address [facility]/ZIP Co de Phone Number [facility] [address] [address], [facility] [address] [address] * HEPATITIS C AB W/RFLX HCV RNA, QT, RT PCR (04/23/2021 9:18 AM EDT) HEPATITIS C ANTIBODY NON-REACT BETTIE NON-REACT BETTIE [facility] [employer] [facility] SIGNAL TO CUT-OFF 0.01 <1.00 [facility] Comment: HCV antibody was non-reactive. There is no laboratory evidence of HCV infection. In most cases, no further action is required. However, if recent HCV exposure is suspected, a test for HCV RNA (test code 61090) is suggested. For additional information please refer to http://education.[employer]/faq/DQL07l5 (This link is being provided for informational/ educational purposes only.) Blood Blood / Unknown 04/23/2021 9 :18 AM EDT 04/23/2021 9:19 AM EDT Narrative Elias Borges Urzeda [facility] - 04/24/2021 2:35 PM EDT FASTING:NO Kerry Claudette SISAL OPERATOR-C LAB - BLOOD DRAW Edited Resu lt - Final Performing Organization Address [facility] Co de Phone Number [facility] [address] [address], [facility] [address] [address] * HIV 1/2 AG & AB W/RFLX (4TH GEN) (04/23/2021 9:18 AM EDT) HIV AG/AB, 4TH GEN NON-REAC TIVE NON-REAC TIVE [facility] [employer] [facility] Comment: HIV-1 antigen and HIV-1/HIV-2 antibodies were not detected. There is no laboratory evidence of HIV infection. PLEASE NOTE: This information has been disclosed to you from records whose confidentiality may be protected by state law. If your state requires such protection, then the state law prohibits you from making any further disclosure of the information without the specific written consent of the person to whom it pertains, or as otherwise permitted by law. A general authorization for the release of medical or other information is NOT sufficient for this purpose. For additional information please refer to http://education.[employer]/faq/BMZ477 (This link is being provided for informational/ educational purposes only.) The performance of this assay has not been clinically validated in patients less than 2 years old. Blood Blood / Unknown 04/23/2021 9 :18 AM EDT 04/23/2021 9:19 AM EDT Narrative [email or web address] [employer] - 04/24/2021 2:35 PM EDT FASTING:NO Kerry Wilkins SISAL OPERATOR-C LAB - BLOOD DRAW Final Resul t [facility] [employer] [address] [address], [facility] [address] [address] from Last 3 Months or Most Recently Relevant to Health Maintenance Insurance [place] [facility]ICAID [facility] - DENTAL [facility] Care Teams [employer] Agriculture Teacher Relationship Specialty Start Date End Date Marjorie Bradford PA-C [address] [place] [address] PCP - General Internal Medicine 07/18/23
--- OUTSIDE RECORDS SUMMARY | 2025-03-12 09:32 | XMS_ITS | Encounter Summary ---
Author Organization [facility] Address [address] [place] [address] Care Team Providers Care Integration Lead Name Role Phone Marjorie Bradford Primary Care Provider Encounter Details Date Type Department Care Team (Late st Contact Info) Description 10/18/2024 Lab Requisition [facility] - Main Lab [address] [facility] [address] Esequiel Saenz MD [address] [facility] [address] [place] [phone] Benign essential microscopic hematuria Social History Tobacco Use Types Packs/Day Years Used Date Smoking Tobacco: Every Day Sex and Gender Information Value Date Recorded Sex Assigned at Not on file Legal Sex Male 4:25 AM EST Gender Identity Not on file Sexual Orientation Not on file documented as of this encounter Plan of Treatment Not on file documented as of this encounter Procedures Procedure Name Priority Date/Time Associated Diagnosis Comments AP OUTSIDE CONSULT Routine 10/11/2024 12 :00 AM EDT Benign essential microscopic hematuria documented in this encounter Results * Anatomic pathology outside consult (10/11/2024 12:00 AM EDT) Final Diagnosis A. Urine, Voided, ([id number]): Negative for high grade urothelial carcinoma. Results of UroVysion fluorescence in situ hybridization (FISH) testing: CEP3: Normal CEP7: Normal CEP17: Normal LSI 9p21: Normal Interpretation: Normal profile Controls stained appropriately. Note: The results are intended as a screening device and should be interpreted in association with other clinical and pathological findings. 10/19/2024 5:07 PM EDT [facility] HOSP[facility] LAB Clinical Information Benign essential microscopic hematuria R31.1 Urine Cytology/FISH (now) 10/19/2024 5:07 PM EDT [facility] Gross Description A. Urine, Voided, ([id number]): Received one ThinPrep slide for cytology and one ThinPrep slide for UroVysion FISH 10/19/2024 5:07 PM EDT [facility] Disclaimer Unless otherwise specified, all tissue is 10% NB formalin fixed and paraffin embedded. Technical pathology services provided by [facility] [address] [place] [address] (CLIA #[id number]/Martha Sweet MD, Ancillary Services Manager) 10/19/2024 5:07 PM EDT [facility] Tissue Urine specimen from urethra / Unknown 10/11/2024 10/18/2024 11:26 AM EDT us Esequiel Saenz MD LAB PATHOLOGY ORDERABLES Fin al Result [facility] [address] [place] [address], documented in this encounter Visit Diagnoses Diagnosis Benign essential microscopic hematuria documented in this encounter Care Teams Integration Lead Relationship Specialty Start Date End Date Marjorie Bradford PA [address] [place] [address] PCP - General 11/29/24 documented as of this encounter
--- OUTSIDE RECORDS SUMMARY | 2025-03-12 09:32 | XMS_ITS | Clinical Summary ---
Author Organization [address] [facility] Address [address] [place] [address] Phone Care Team Providers Care Ball Thread Machine Tender Name Role Phone Marjorie Bradford Primary Care Provider Medical History Medical History Date Comments Tobacco abuse DX:Tobacco abuse Dysautonomia (CMS/HCC V24, CMS/HCC V28) DX:Dysautonomia (HCC) Suicide attempt (CMS/HCC V24, CMS/HCC V28) DX:Suicide attempt (HCC) Sciatic leg pain [...] on file Obstetrics History Plan of Treatment Health Maintenance Due Date Last Done Comments Colorectal Cancer Screening: Colonoscopy 06/13/2022 HIV Screening 06/13/2022 Social Influencers of Health Screening 06/13/2022 Depression Screening 07/11/2024 Influenza Vaccine (#1) 2025 , 05/28/2023, 04/25/2022, Additional history exists Lung Cancer Screening (Low Dose CT) 11/28/2025 11/28/2024, 11/25/2023, 11/25/2023, Additional history exists Cholesterol Screening (Lipid Panel) 12/16/2028 2023, 09/24/2022, 04/23/2021, Additional history exists DTaP,Tdap,and Td Vaccines (3 - Td or Tdap) 04/23/2031 04/23/2021, 12/19/2017 Hepatitis B Vaccines Completed 04/12/2017, 07/27/2016, 06/17/2016 Meningococcal ACWY Vaccine Aged Out 06/17/2017 N o longer eligible based on patient's age to complete this topic Hepatitis C Screening Completed 04/23/2021 Zoster Vaccines Completed 06/29/2021, 04/23/2021 Pneumococcal Vaccine: 50+ Years Completed 12/09/2023, 06/17/2017, 09/22/2010 COVID-19 Vaccine Completed 04/14/2024, , 04/25/2022, Additional history exists HIB Vaccines Aged Out No longer eligi [...] to complete this topic RSV Immunization Patients Under 20 months Aged Out No longer eligible based on patient's age to complete this topic Varicella Vaccines Aged Out No longer eligible based on patient's age to complete this topic Procedures Procedure Name Priority Date/Time Associated Diagnosis Comments CT LUNG SCREENING Routine 11/28/2024 8:0 8 AM EDT Encounter for screening for malignant neoplasm of respiratory organs Nicotine dependence, cigarettes, uncomplicated from Last 3 Months or Most Recently Relevant to Health Maintenance Results * CT Lung Screening (11/28/2024 8:08 AM EDT) Anatomical Region Laterality Modality Chest Computed Tomogra phy 11/28/2024 8:55 AM EDT Impressions 11/28/2024 9:24 AM EDT No new or suspicious pulmonary nodules. Lung RADS 2-benign. Recommend continued screening with low-dose chest CT in 12 months. -------- FINAL REPORT -------- Dictated By: EUSEBIO REID Dictated Date: 11/28/2024 08:55 ET Assigned Physician: EUSEBIO REID Reviewed and Electronically Signed By: EUSEBIO REID Signed Date: 11/28/2024 09:24 ET Workstation ID: [id number] Transcribed By: Self Edit Transcribed Date: 11/28/2024 08:55 ET Narrative 11/28/2024 9:24 AM EDT PROCEDURE: Chest CT INDICATION: Lung cancer screening, current smoker, 40 pack-year smoking history TECHNIQUE: Chest CT without contrast. Multi planar reformats were created and interpreted. The examination was performed utilizing dose reduction techniques. Total DLP 110 COMPARISON: 11/25/2023. FINDINGS: LUNGS/PLEURA: Central airways are patent. Emphysema with biapical pleural-parenchymal scarring, unchanged. 3 mm left upper lobe nodule is unchanged. No new or suspicious pulmonary nodules. No pleural effusion or pneumothorax. MEDIASTINUM: Thyroid gland is unremarkable. No mediastinal or hilar lymphadenopathy. Cardiac chambers are normal in size. No pericardial effusion. Esophagus is normal. Mild coronary artery calcifications. CHEST WALL: No axillary lymphadenopathy or superficial hematoma. UPPER ABDOMEN:The visualized portions of the upper abdomen are unremarkable. BONES: No acute fracture. Superior endplate Schmorl's node at T8. Procedure Note Eusebio Reid MD - 11/28/2024 PROCEDURE: Chest CT INDICATION: Lung cancer screening, current smoker, 40 pack-year smokinghistory TECHNIQUE: Chest CT without contrast. Multi planar reformats were createdand interpreted. The examination was performed utilizing dose reductiontechniques. Total DLP 110 COMPARISON: 11/25/2023. FINDINGS: LUNGS/PLEURA: Central airways are patent. Emphysema with biapicalpleural- parenchymal scarring, unchanged. 3 mm left upper lobe nodule isunchanged. No new or suspicious pulmonary nodules. No pleural effusionor pneumothorax. MEDIASTINUM: Thyroid gland is unremarkable. No mediastinal or hilarlymphadenopathy. Cardiac chambers are normal in size. No pericardialeffusion. Esophagus is normal. Mild coronary artery calcifications. CHEST WALL: No axillary lymphadenopathy or superficial hematoma. UPPER ABDOMEN:The visualized portions of the upper abdomen areunremarkable. BONES: No acute fracture. Superior endplate Schmorl's node at T8. IMPRESSION: No new or suspicious pulmonary nodules. Lung RADS 2-benign. Recommendcontinued screening with low-dose chest CT in 12 months. -------- FINAL REPORT -------- Dictated By: EUSEBIO REID Dictated Date: 11/28/2024 08:55 ET Assigned Physician: EUSEBIO REID Reviewed and Electronically Signed By: EUSEBIO REID Signed Date: 11/28/2024 09:24 ET Workstation ID: [id number] Transcribed By: Self Edit Transcribed Date: 11/28/2024 08:55 ET Yakov Sauer MD IMG CT PROCEDURES Final Result from Last 3 Months or Most Recently Relevant to Health Maintenance Insurance [facility] MEDICAID Care Teams Ball Thread Machine Tender Relationship Specialty Start Date End Date Marjorie Bradford PA [address] [place] [address] PCP - General 11/29/24
== END 2025-03-12 08:47 | disposition home or self-care (01) ==
LOC: HO.SH 08:46
PROVIDERS: Visit Provider Physician Assistant
DX: Z01.118 Encounter for examination of ears and hearing with other abnormal findings (principal); H90.3 Sensorineural hearing loss, bilateral
CPT/HCPCS: 92557